=== PATIENT | female | born 1985 | race Caucasian/White ===

== ENCOUNTER → 2016-05-22 | Outpatient (CLI) | payer OTHER ==
--- NOTE | 2016-05-22 17:52 | US ---
[facility] Providers, Thank you for sending your patient, Iva Bryan, to us for an US and consultation to assess a natomy. As you know, the patient is a 31 y.o. G1, P0 at 21 weeks and 4 days with an EDC of 09/28/16 ba sed on a sure LMP. Her has been uncomplicated to date. She denies any significant past medi coby or surgical history. Genetic Screening: Declined The patient denies any uterine contractions, vaginal bleeding, or loss of fluid. Today, she is withou t complaints. US FINDINGS: Number of fetuses: 1 Placental location: Posterior, No previa Placental Cord Insertion: Central presentation: Cephalic Cervix: 3.8 cm, transabdominally MVP: 4.3 cm The adnexa were evaluated. No pathology was seen. Right ovary: Normal Left ovary: Normal heart rate: 160 bpm Measurements: Biparietal diameter: 46 mm, 20 weeks 0 days Head circumference: 176 mm, 20 weeks 1 days Abdominal circumference: 163 mm, 21 weeks 3 days Femur length: 33 mm, 20 weeks 3 days Humerus length: 33 mm, 21 weeks 0 days Transcerebellar diameter: 20 mm, 19 weeks 1 days Average ultrasound age: 20 weeks 4 days Estimated weight: 376 g weight percentile: 12% ANATOMY Supratentorial brain: Normal Cerebral lateral ventricle: 6 mm Posterior fossa: Normal Cisterna magna: 3 mm Nuchal fold: 4.7 mm Lip: Normal Profile: Normal Alveolar Ridge: Appears intact Spine: -- Cervical: Normal -- Thoracic: Normal -- Lumbar: Normal -- Sacral: Normal Heart: -- 4 Chamber: Normal -- Intraventricular septum: Appears intact by Color and Spectral US -- Right Outflow Tract: Normal -- Left Outflow Tract: Normal -- 3 Vessel View: Normal -- Aortic Arch: Normal -- Ductal Arch: Normal Diaphragm: Appears intact Stomach: Normal Abdominal Umbilical Cord Insertion: Normal Right kidney: Normal Left kidney: Normal Bladder: Normal Number of cord vessels: 3 Upper extremities: -- Right Arm: Normal -- Right Hand: Normal -- Left Arm: Normal -- Left Hand: Normal Lower extremities: -- Right Leg: Normal -- Right Foot: Normal, no club foot -- Left Leg: Normal -- Left Foot: Normal, no club foot IMPRESSION: 1. Anatomy: The fetus measures appropriate for gestational age, measuring a normal weight and percen tile. Visualization of the fetus today reveals no overt structural anomalies. There is evidence of no rmal amniotic fluid, and movement was seen during the examination. - Despite an EFW >10%ile, all measurements beside the AC are <10%ile. I recommend a growth US a t 28-30 weeks. 2. Genetic Screening: This patient has declined genetic screening in this . Today, no marke rs of aneuploidy were seen. While her US results are reassuring, we reviewed that US alone can miss cases of aneuploidy, in particular Trisomy 21. We also reviewed that aneuploidy can only be definitively excluded with diagnostic testing via amniocentesis. After this discussion, the p atient does not wish to proceed with further genetic screening or invasive testing at this time. Thank you again for sending this patient to see us today. Please feel free to contact me with any questions at . Sonya Craig MD Maternal- Medicine
--- NOTE | 2016-05-23 09:16 | US ---
OB sonogram History: 21 weeks 4 days, VALERIE September 28, 2016, check growth and anatomy Comparison: none Findings: There is a single viable intrauterine gestation in vertex presentation. The placenta is pos terior without previa. The umbilical cord has 3 vessels and inserts into the central aspect of the pl acenta. The cervix is closed measuring 3.8 cm transabdominally. Both maternal ovaries are visualized and appear normal. Maximum amniotic fluid pocket = 4.3 cm. The visualized face, intracranial contents and spine look normal. The heart i s 4 chambered and has a heart rate = 160 beats per minute. The right and left ventricular outflow tra cks look normal. Fluid is identified in the stomach and urinary bladder. The renal region looks normal. The umbilical cord has 3 vessels and a normal insertion site. Four extremi ties are present. BPD = 46 mm = 20 weeks 0 days (3%) Head circumference = 176 mm = 20 weeks 1 day (less than 2%) Abdominal circumference = 163 mm = 21 weeks 3 days (35%) Femur length = 33 mm = 20 weeks 3 (9%) Humeral length = 33 mm = 21 weeks 0 days Cerebellar width = 20 mm = 19 weeks 1 day Cisterna magna = 3 mm Estimated weight = 12% ile Ultrasound average gestational age = 20 weeks 4 days Ultrasound VALERIE October 05, 2016 Impression: Size consistent with dates. Several measurements are less than 10% ile so growth ch trinity is recommended to 28 to 30 weeks. This report should be read in conjunction with the consultation by Dr. Meghana Raymundo.
== END ==
LOC: FIMAGING 10:33
PROVIDERS: ATTEND Advanced Practice Midwife
DX: Z34.82 Encounter for supervision of other normal pregnancy, second trimester (principal); Z3A.20 20 weeks gestation of pregnancy

== ENCOUNTER → 2016-07-10 | Outpatient (CLI) | payer OTHER | LOC: FIMAGING 09:54 | PROVIDERS: ATTEND Advanced Practice Midwife | DX: Z36 Encounter for antenatal screening of mother (principal); Z3A.28 28 weeks gestation of pregnancy ==

== ENCOUNTER → 2016-08-23 | Outpatient (CLI) | payer OTHER | LOC: FIMAGING 09:44 | PROVIDERS: ATTEND Advanced Practice Midwife | DX: Z34.03 Encounter for supervision of normal first pregnancy, third trimester (principal); Z3A.34 34 weeks gestation of pregnancy ==